=== PATIENT | male | born 1960 ===

== ENCOUNTER 2024-08-14 11:09 | Inpatient (IN) | payer OTHER ==
[~2024-08-14] VITALS: Ht 157.5 cm; Wt 75.5 kg
[2024-08-14] MEDS ORDERED: ATOR20TA PO (11:27)
[2024-08-14] MEDS ORDERED: LISI-894 PO (11:27)
[2024-08-14 13:39] LABS: BASOPHILS % (AUTO) 0.5 % (0.0-2.0); EOSINOPHILS % (AUTO) 1.2 % (1.0-6.0); HEMATOCRIT 43.2 % (41-53); HEMOGLOBIN 14.4 g/dL (13.5-17.5); LYMPHOCYTES % (AUTO) 14.2 % (22.0-44.0); MEAN CORPUSCULAR HEMOGLOBIN 27.3 pg (26.0-34.0); MEAN CORPUSCULAR HGB CONC 33.4 G/dL (31.0-37.0); MEAN CORPUSCULAR VOLUME 82 fL (80-100); MONOCYTES # (AUTO) 0.5 K/uL (0.1-1.0); MONOCYTES % (AUTO) 7.3 % (2.0-9.0); NEUTROPHILS # (AUTO) 5.6 K/uL (1.8-7.7); NEUTROPHILS % (AUTO) 76.8 % (40.0-70.0); PLATELET COUNT (AUTO) 290 K/uL (150-450); RED BLOOD CELL COUNT(AUTO) 5.28 MIL/uL (4.50-5.90); RED CELL DISTRIBUTION WIDTH 14.1 % (11.5-14.5); WHITE BLOOD COUNT (AUTO) 7.3 K/uL (4.5-11.0)
[2024-08-14 14:05] LABS: ALBUMIN 3.2 g/dL (3.4-5.0); BILIRUBIN,TOTAL 0.5 mg/dL (0.1-1.0); CALCIUM, TOTAL 9.6 mg/dL (8.8-10.5); CREATININE 1.34 mg/dL (0.60-1.30); POTASSIUM 4.7 mmol/L (3.5-5.1); TOTAL PROTEIN, SERUM 8.2 g/dL (6.4-8.2)
[2024-08-14] MEDS: SODIUM CHLORIDE 0.9% 1,000 ML IV ONE (14:27)
[2024-08-14] MEDS: INSULIN LISPRO 100 UNITS/ML SQ ONE (14:27)
[2024-08-14 16:35] VITALS: BP 150/88; PULSE 86; RESP 18; TEMP 98.6; O2SAT 98
[2024-08-14] MEDS: HEPARIN SODIUM,PORCINE 5,000 UNITS/ML VIAL SQ SCH (16:42)
[2024-08-14] MEDS ORDERED: SODIUM CHLORIDE 3% 15 ML NEB SOLUTION NEB ONE (19:36)
[2024-08-14 19:45] VITALS: PULSE 94; RESP 20; O2SAT 96
[2024-08-14 20:25] VITALS: BP 137/77; PULSE 82; RESP 18; TEMP 97.6; O2SAT 96
[2024-08-14] MEDS ORDERED: DEXTROSE 50%-WATER 25 GM/50 ML SYRINGE IVP PRN (21:15)
[2024-08-14] MEDS: INSULIN GLARGINE,HUM.REC.ANLOG 100 UNITS/ML SQ SCH (21:28)
[2024-08-14] MEDS: INSULIN LISPRO 100 UNITS/ML SQ PRN (21:29)
[2024-08-15] MEDS ORDERED: SODIUM CHLORIDE 3% 15 ML NEB SOLUTION NEB ONE (04:00)
[2024-08-15 04:04] VITALS: PULSE 78; RESP 20; O2SAT 96
[2024-08-15 06:20] VITALS: BP 121/77; PULSE 66; RESP 18; TEMP 97.8; O2SAT 99
[2024-08-15] MEDS: FAMOTIDINE 20 MG TABLET PO SCH (09:11)
[2024-08-15 09:36] LABS: GLUCOMETER DEV NAME(LOC) 6N.2B; GLUCOSE,POINT OF CARE 206 MG/DL (70-110)
[2024-08-15] MEDS: SODIUM CHLORIDE 0.9% 1,000 ML IV ONE (10:42)
[2024-08-15 13:10] LABS: MTB-RIFAMPIN RESISTANCE NOT DETECTED (Not detectd)
[2024-08-15 14:44] LABS: MTB-RIFAMPIN RESISTANCE NOT DETECTED (Not detectd)
[2024-08-15 14:49] LABS: MTB PCR w/Rif. Resistance-SPUT DETECTED (Not Detectd)
[2024-08-15 14:51] LABS: MTB PCR w/Rif. Resistance-SPUT DETECTED (Not Detectd)
[2024-08-15 15:47] LABS: GLUCOMETER DEV NAME(LOC) 6N.1B; GLUCOSE,POINT OF CARE 133 MG/DL (70-110)
[2024-08-15 15:47] LABS: GLUCOMETER DEV NAME(LOC) 6N.1B; GLUCOSE,POINT OF CARE 442 MG/DL (70-110)
[2024-08-15 16:14] LABS: GLUCOMETER DEV NAME(LOC) 6N.1B; GLUCOSE,POINT OF CARE 133 MG/DL (70-110)
[2024-08-15 16:14] LABS: GLUCOMETER DEV NAME(LOC) 6N.1B; GLUCOSE,POINT OF CARE 442 MG/DL (70-110)
[2024-08-15] MEDS: ETHAMBUTOL HCL 400 MG TABLET PO SCH (16:33)
[2024-08-15] MEDS: PYRAZINAMIDE 500 MG TABLET PO SCH (16:33)
[2024-08-15] MEDS: RIFAMPIN 300 MG CAPSULE PO SCH (16:43)
[2024-08-15] MEDS: ISONIAZID 300 MG TABLET PO SCH (16:43)
[2024-08-15] MEDS: MetFORMIN HCL 500 MG TABLET PO SCH (18:07)
[2024-08-15 19:06] LABS: GLUCOMETER DEV NAME(LOC) 6N.1B; GLUCOSE,POINT OF CARE 205 MG/DL (70-110)
[2024-08-15 19:06] LABS: GLUCOMETER DEV NAME(LOC) 6N.2B; GLUCOSE,POINT OF CARE 252 MG/DL (70-110)
[2024-08-15 20:20] VITALS: BP 121/64; PULSE 67; RESP 18; TEMP 98.4; O2SAT 98
[2024-08-16 07:34] LABS: ANION GAP 10 mmol/L (8-16); CALCIUM, TOTAL 8.5 mg/dL (8.8-10.5); CARBON DIOXIDE 27 mmol/L (22-29); CHLORIDE 101 mmol/L (98-107); CREATININE 0.73 mg/dL (0.60-1.30); GLOMERULAR FILTR. RATE CALC > 60 mL/min (>60); GLUCOSE,RANDOM 122 mg/dL (70-110); SODIUM SERUM 138 mmol/L (136-145); UREA NITROGEN, BLOOD 18 mg/dL (7-18)
[2024-08-16 07:38] VITALS: BP 118/75; PULSE 74; RESP 18; TEMP 98.6; O2SAT 99
[2024-08-16 09:36] LABS: GLUCOMETER DEV NAME(LOC) 6N.1B; GLUCOSE,POINT OF CARE 116 MG/DL (70-110)
[2024-08-16 09:40] LABS: GLUCOMETER DEV NAME(LOC) 6N.2B; GLUCOSE,POINT OF CARE 231 MG/DL (70-110)
[2024-08-16 20:16] VITALS: BP 120/73; PULSE 88; RESP 18; TEMP 98.9; O2SAT 96
[2024-08-16 20:31] LABS: GLUCOMETER DEV NAME(LOC) 6N.1B; GLUCOSE,POINT OF CARE 249 MG/DL (70-110)
[2024-08-16 20:31] LABS: GLUCOMETER DEV NAME(LOC) 6N.1B; GLUCOSE,POINT OF CARE 275 MG/DL (70-110)
[2024-08-16 21:31] LABS: GLUCOMETER DEV NAME(LOC) 6N.2B; GLUCOSE,POINT OF CARE 132 MG/DL (70-110)
[2024-08-17 04:43] VITALS: BP 128/78; PULSE 70; RESP 18; TEMP 98.1; O2SAT 96
[2024-08-17 07:38] VITALS: BP 120/72; PULSE 67; RESP 18; TEMP 98.7; O2SAT 99
[2024-08-17 11:56] LABS: GLUCOMETER DEV NAME(LOC) 6N.2B; GLUCOSE,POINT OF CARE 171 MG/DL (70-110)
[2024-08-17 12:30] LABS: GLUCOMETER DEV NAME(LOC) 6S.2; GLUCOSE,POINT OF CARE 175 MG/DL (70-110)
[2024-08-17 19:01] LABS: GLUCOMETER DEV NAME(LOC) 6S.2; GLUCOSE,POINT OF CARE 159 MG/DL (70-110)
[2024-08-17 19:54] VITALS: BP 132/76; PULSE 66; RESP 18; TEMP 98.6; O2SAT 97
[2024-08-18 05:06] VITALS: BP 118/68; PULSE 75; RESP 18; TEMP 98.6; O2SAT 98
[2024-08-18 06:20] LABS: GLUCOMETER DEV NAME(LOC) 6N.1B; GLUCOSE,POINT OF CARE 144 MG/DL (70-110)
[2024-08-18 08:03] VITALS: BP 115/78; PULSE 79; RESP 18; TEMP 98.8; O2SAT 97
[2024-08-18 10:06] LABS: QUANTIFERON+,Mitogen Value >10.00 IU/mL; QUANTIFERON+,TB1 Antigen Value 5.72 IU/mL; QUANTIFERON+,TB2 Antigen Value 6.04 IU/mL; QUANTIFERON, TB GOLD PLUS Positive (Negative)
[2024-08-18 11:30] LABS: GLUCOMETER DEV NAME(LOC) 6S.2; GLUCOSE,POINT OF CARE 102 MG/DL (70-110)
[2024-08-18 13:06] LABS: GLUCOMETER DEV NAME(LOC) 6N.2B; GLUCOSE,POINT OF CARE 214 MG/DL (70-110)
[2024-08-18 20:55] VITALS: BP 114/70; PULSE 74; RESP 18; TEMP 98.7; O2SAT 96
[2024-08-18 21:40] LABS: GLUCOMETER DEV NAME(LOC) 6N.2B; GLUCOSE,POINT OF CARE 140 MG/DL (70-110)
[2024-08-18 21:46] LABS: GLUCOMETER DEV NAME(LOC) 6S.2; GLUCOSE,POINT OF CARE 188 MG/DL (70-110)
[2024-08-19] MEDS: ACETAMINOPHEN 325 MG TABLET PO PRN (02:29)
[2024-08-19 05:18] VITALS: BP 119/74; PULSE 72; RESP 18; TEMP 98; O2SAT 97
[2024-08-19 08:57] VITALS: BP 128/70; PULSE 73; RESP 20; TEMP 98.3; O2SAT 98
[2024-08-19 12:45] LABS: GLUCOMETER DEV NAME(LOC) 6S.2; GLUCOSE,POINT OF CARE 102 MG/DL (70-110)
[2024-08-19 12:45] LABS: GLUCOMETER DEV NAME(LOC) 6N.1B; GLUCOSE,POINT OF CARE 116 MG/DL (70-110)
[2024-08-19 17:56] LABS: GLUCOMETER DEV NAME(LOC) 6S.2; GLUCOSE,POINT OF CARE 125 MG/DL (70-110)
[2024-08-19 20:08] VITALS: BP 128/80; PULSE 67; RESP 20; TEMP 98.7; O2SAT 95
[2024-08-19 21:45] LABS: GLUCOSE,POINT OF CARE 128 MG/DL (70-110)
[2024-08-19 21:46] LABS: GLUCOMETER DEV NAME(LOC) 6N.2B
[2024-08-20 05:24] VITALS: BP 128/82; PULSE 82; RESP 18; TEMP 98.4; O2SAT 98
[2024-08-20 05:36] LABS: GLUCOMETER DEV NAME(LOC) 6N.2B; GLUCOSE,POINT OF CARE 102 MG/DL (70-110)
[2024-08-20 08:00] VITALS: BP 117/78; PULSE 82; RESP 18; TEMP 98.3; O2SAT 97
[2024-08-20 10:09] LABS: BASOPHILS % (AUTO) 0.7 % (0.0-2.0); EOSINOPHILS % (AUTO) 2.2 % (1.0-6.0); HEMATOCRIT 42.9 % (41-53); HEMOGLOBIN 14.5 g/dL (13.5-17.5); LYMPHOCYTES # (AUTO) 1.2 K/uL (1.0-4.8); LYMPHOCYTES % (AUTO) 17.9 % (22.0-44.0); MEAN CORPUSCULAR HEMOGLOBIN 27.2 pg (26.0-34.0); MEAN CORPUSCULAR HGB CONC 33.7 G/dL (31.0-37.0); MEAN CORPUSCULAR VOLUME 81 fL (80-100); MONOCYTES # (AUTO) 0.6 K/uL (0.1-1.0); NEUTROPHILS # (AUTO) 4.7 K/uL (1.8-7.7); NEUTROPHILS % (AUTO) 70.2 % (40.0-70.0); PLATELET COUNT (AUTO) 269 K/uL (150-450); RED BLOOD CELL COUNT(AUTO) 5.32 MIL/uL (4.50-5.90); WHITE BLOOD COUNT (AUTO) 6.7 K/uL (4.5-11.0)
[2024-08-20 10:37] LABS: ALANINE AMINOTRANSFERASE 53 U/L (12-78); ALBUMIN 2.9 g/dL (3.4-5.0); ALKALINE PHOSPHATASE 138 U/L (46-116); ANION GAP 9 mmol/L (8-16); ASPARTATE AMINOTRANSFERASE 60 U/L (15-37); BILIRUBIN,TOTAL 0.8 mg/dL (0.1-1.0); CALCIUM, TOTAL 9.6 mg/dL (8.8-10.5); CARBON DIOXIDE 27 mmol/L (22-29); CHLORIDE 98 mmol/L (98-107); CREATININE 0.92 mg/dL (0.60-1.30); GLOMERULAR FILTR. RATE CALC > 60 mL/min (>60); GLUCOSE,RANDOM 149 mg/dL (70-110); POTASSIUM 4.1 mmol/L (3.5-5.1); SODIUM SERUM 134 mmol/L (136-145); TOTAL PROTEIN, SERUM 7.8 g/dL (6.4-8.2); UREA NITROGEN, BLOOD 19 mg/dL (7-18)
[2024-08-20 11:56] LABS: HIV 1-2 SCREEN 4TH GEN W/RFLX Non Reactive (Non Reactive)
[2024-08-20 19:55] VITALS: BP 121/85; PULSE 82; RESP 18; TEMP 98.2; O2SAT 95
[2024-08-20] MEDS: MAGNESIUM HYDROXIDE SUSPENSION 30 ML UDCUP PO PRN (20:31)
[2024-08-20 21:55] LABS: GLUCOMETER DEV NAME(LOC) 6N.2B; GLUCOSE,POINT OF CARE 116 MG/DL (70-110)
[2024-08-20 21:56] LABS: GLUCOMETER DEV NAME(LOC) 6N.2B; GLUCOSE,POINT OF CARE 142 MG/DL (70-110)
[2024-08-20 21:56] LABS: GLUCOMETER DEV NAME(LOC) 6N.2B; GLUCOSE,POINT OF CARE 125 MG/DL (70-110)
[2024-08-21 04:35] VITALS: BP 100/62; PULSE 91; RESP 18; TEMP 98.1; O2SAT 98
[2024-08-21 07:11] LABS: GLUCOMETER DEV NAME(LOC) 6N.1B; GLUCOSE,POINT OF CARE 115 MG/DL (70-110)
[2024-08-21 08:17] VITALS: BP 119/76; PULSE 81; RESP 18; TEMP 99.9; O2SAT 99
[2024-08-21] MEDS: ONDANSETRON 4 MG TABLET PO PRN (13:08)
[2024-08-21 17:31] LABS: GLUCOMETER DEV NAME(LOC) 6N.2B; GLUCOSE,POINT OF CARE 138 MG/DL (70-110)
[2024-08-21 17:35] LABS: GLUCOMETER DEV NAME(LOC) 6N.1B; GLUCOSE,POINT OF CARE 109 MG/DL (70-110)
[2024-08-21 20:38] VITALS: BP 120/71; PULSE 73; RESP 19; TEMP 98.3; O2SAT 97
[2024-08-21 21:36] LABS: GLUCOMETER DEV NAME(LOC) 6S.2; GLUCOSE,POINT OF CARE 116 MG/DL (70-110)
[2024-08-22 06:05] VITALS: BP 120/70; PULSE 76; RESP 16; TEMP 98.2; O2SAT 97
[2024-08-22 08:40] VITALS: BP 118/77; PULSE 77; RESP 19; TEMP 98.2; O2SAT 97
[2024-08-22 11:15] LABS: GLUCOMETER DEV NAME(LOC) 6N.1B; GLUCOSE,POINT OF CARE 90 MG/DL (70-110)
[2024-08-22 20:52] VITALS: BP 113/78; PULSE 73; RESP 18; TEMP 98.3; O2SAT 98
[2024-08-22 21:51] LABS: GLUCOMETER DEV NAME(LOC) 6N.2B; GLUCOSE,POINT OF CARE 74 MG/DL (70-110)
[2024-08-23 06:16] LABS: GLUCOMETER DEV NAME(LOC) 6N.2B; GLUCOSE,POINT OF CARE 95 MG/DL (70-110)
[2024-08-23 07:57] VITALS: BP 122/72; PULSE 72; RESP 19; TEMP 98; O2SAT 97
[2024-08-23 08:05] LABS: GLUCOMETER DEV NAME(LOC) 6N.1B; GLUCOSE,POINT OF CARE 108 MG/DL (70-110)
[2024-08-23 12:16] LABS: GLUCOMETER DEV NAME(LOC) 6S.2; GLUCOSE,POINT OF CARE 124 MG/DL (70-110)
[2024-08-23 19:11] LABS: GLUCOMETER DEV NAME(LOC) 6N.1B; GLUCOSE,POINT OF CARE 110 MG/DL (70-110)
[2024-08-23 20:17] VITALS: BP 129/74; PULSE 72; RESP 20; TEMP 98.3; O2SAT 96
[2024-08-24 02:26] LABS: GLUCOMETER DEV NAME(LOC) 6N.2B; GLUCOSE,POINT OF CARE 133 MG/DL (70-110)
[2024-08-24 04:55] VITALS: BP 127/88; PULSE 76; RESP 20; TEMP 97.5; O2SAT 97
[2024-08-24 08:49] VITALS: BP 126/79; PULSE 78; RESP 20; TEMP 98.3; O2SAT 97
[2024-08-24 14:31] LABS: GLUCOMETER DEV NAME(LOC) 6N.1B; GLUCOSE,POINT OF CARE 103 MG/DL (70-110)
[2024-08-24 14:31] LABS: GLUCOMETER DEV NAME(LOC) 6N.1B; GLUCOSE,POINT OF CARE 83 MG/DL (70-110)
[2024-08-24 15:55] LABS: BASOPHILS % (AUTO) 0.8 % (0.0-2.0); EOSINOPHILS % (AUTO) 1.8 % (1.0-6.0); HEMATOCRIT 43.3 % (41-53); HEMOGLOBIN 14.5 g/dL (13.5-17.5); LYMPHOCYTES # (AUTO) 1.1 K/uL (1.0-4.8); MEAN CORPUSCULAR HEMOGLOBIN 27.3 pg (26.0-34.0); MEAN CORPUSCULAR HGB CONC 33.5 G/dL (31.0-37.0); MEAN CORPUSCULAR VOLUME 81 fL (80-100); MONOCYTES # (AUTO) 0.5 K/uL (0.1-1.0); MONOCYTES % (AUTO) 7.9 % (2.0-9.0); NEUTROPHILS # (AUTO) 4.2 K/uL (1.8-7.7); NEUTROPHILS % (AUTO) 71.5 % (40.0-70.0); PLATELET COUNT (AUTO) 284 K/uL (150-450); RED BLOOD CELL COUNT(AUTO) 5.31 MIL/uL (4.50-5.90); RED CELL DISTRIBUTION WIDTH 14.2 % (11.5-14.5); WHITE BLOOD COUNT (AUTO) 5.9 K/uL (4.5-11.0)
[2024-08-24 16:02] LABS: ANION GAP 10 mmol/L (8-16); CALCIUM, TOTAL 9.5 mg/dL (8.8-10.5); CARBON DIOXIDE 26 mmol/L (22-29); CHLORIDE 97 mmol/L (98-107); CREATININE 1.05 mg/dL (0.60-1.30); GLOMERULAR FILTR. RATE CALC > 60 mL/min (>60); GLUCOSE,RANDOM 146 mg/dL (70-110); POTASSIUM 4.5 mmol/L (3.5-5.1); SODIUM SERUM 133 mmol/L (136-145); UREA NITROGEN, BLOOD 15 mg/dL (7-18)
[2024-08-24 16:07] LABS: ALANINE AMINOTRANSFERASE 100 U/L (12-78); ALBUMIN 2.9 g/dL (3.4-5.0); ALKALINE PHOSPHATASE 182 U/L (46-116); ASPARTATE AMINOTRANSFERASE 91 U/L (15-37); BILIRUBIN,TOTAL 1.2 mg/dL (0.1-1.0); TOTAL PROTEIN, SERUM 7.9 g/dL (6.4-8.2)
[2024-08-24 20:15] LABS: GLUCOMETER DEV NAME(LOC) 6N.1B; GLUCOSE,POINT OF CARE 153 MG/DL (70-110)
[2024-08-24 20:44] VITALS: BP 120/75; PULSE 78; RESP 18; TEMP 98; O2SAT 97
[2024-08-25 04:43] VITALS: BP 149/93; PULSE 81; RESP 18; TEMP 98; O2SAT 98
[2024-08-25 07:16] LABS: GLUCOMETER DEV NAME(LOC) 6N.2B; GLUCOSE,POINT OF CARE 146 MG/DL (70-110)
[2024-08-25 07:16] LABS: GLUCOMETER DEV NAME(LOC) 6S.2; GLUCOSE,POINT OF CARE 91 MG/DL (70-110)
[2024-08-25 07:50] VITALS: BP 132/79; PULSE 74; RESP 18; TEMP 97.9; O2SAT 96
[2024-08-25] MEDS: PYRIDOXINE HCL 50 MG TABLET PO SCH (08:35)
[2024-08-25 12:22] LABS: ALANINE AMINOTRANSFERASE 108 U/L (12-78); ALBUMIN 3.2 g/dL (3.4-5.0); ALKALINE PHOSPHATASE 196 U/L (46-116); ANION GAP 9 mmol/L (8-16); ASPARTATE AMINOTRANSFERASE 83 U/L (15-37); CALCIUM, TOTAL 9.7 mg/dL (8.8-10.5); CARBON DIOXIDE 28 mmol/L (22-29); CHLORIDE 97 mmol/L (98-107); CREATININE 1.02 mg/dL (0.60-1.30); GLOMERULAR FILTR. RATE CALC > 60 mL/min (>60); GLUCOSE,RANDOM 117 mg/dL (70-110); POTASSIUM 4.2 mmol/L (3.5-5.1); SODIUM SERUM 134 mmol/L (136-145); TOTAL PROTEIN, SERUM 8.4 g/dL (6.4-8.2); UREA NITROGEN, BLOOD 12 mg/dL (7-18)
[2024-08-25] MEDS: DOCUSATE SODIUM 100 MG CAPSULE PO PRN (13:49)
[2024-08-25 19:11] LABS: GLUCOMETER DEV NAME(LOC) 6S.2; GLUCOSE,POINT OF CARE 112 MG/DL (70-110)
[2024-08-25 20:21] VITALS: BP 136/77; PULSE 73; RESP 18; TEMP 98.1; O2SAT 97
[2024-08-25 21:55] LABS: GLUCOMETER DEV NAME(LOC) 6N.2B; GLUCOSE,POINT OF CARE 193 MG/DL (70-110)
[2024-08-26 05:12] VITALS: BP 142/78; PULSE 73; RESP 18; TEMP 97.9; O2SAT 99
[2024-08-26 09:22] VITALS: BP 111/76; PULSE 72; RESP 18; O2SAT 96
[2024-08-26 14:51] LABS: GLUCOMETER DEV NAME(LOC) 6N.1B; GLUCOSE,POINT OF CARE 127 MG/DL (70-110)
[2024-08-26 14:51] LABS: GLUCOMETER DEV NAME(LOC) 6N.1B; GLUCOSE,POINT OF CARE 90 MG/DL (70-110)
[2024-08-26 15:00] LABS: GLUCOMETER DEV NAME(LOC) 6S.2; GLUCOSE,POINT OF CARE 169 MG/DL (70-110)
[2024-08-26 20:30] VITALS: BP 139/84; PULSE 80; RESP 18; TEMP 97.9; O2SAT 97
[2024-08-26 22:41] LABS: GLUCOMETER DEV NAME(LOC) 6N.2B; GLUCOSE,POINT OF CARE 115 MG/DL (70-110)
[2024-08-26 22:41] LABS: GLUCOMETER DEV NAME(LOC) 6N.1B; GLUCOSE,POINT OF CARE 141 MG/DL (70-110)
[2024-08-27 04:26] VITALS: BP 133/76; PULSE 74; RESP 18; TEMP 98.3; O2SAT 95
[2024-08-27 06:56] LABS: GLUCOMETER DEV NAME(LOC) 6S.2; GLUCOSE,POINT OF CARE 115 MG/DL (70-110)
[2024-08-27 07:16] VITALS: BP 131/86; PULSE 82; RESP 18; TEMP 98.3; O2SAT 100
[2024-08-27] MEDS: LACTULOSE 20 GM/30 ML SOLUTION UDCUP PO ONE (13:41)
[2024-08-27 20:19] VITALS: BP 129/74; PULSE 77; RESP 16; TEMP 98.1; O2SAT 97
[2024-08-27 20:37] LABS: GLUCOMETER DEV NAME(LOC) 6S.2; GLUCOSE,POINT OF CARE 104 MG/DL (70-110)
[2024-08-27 20:37] LABS: GLUCOMETER DEV NAME(LOC) 6N.1B; GLUCOSE,POINT OF CARE 71 MG/DL (70-110)
[2024-08-28] MEDS: LACTULOSE 20 GM/30 ML SOLUTION UDCUP PO PRN (01:39)
[2024-08-28 05:38] VITALS: BP 132/77; PULSE 75; RESP 18; TEMP 97.7; O2SAT 97
[2024-08-28 07:15] LABS: BASOPHILS % (AUTO) 0.6 % (0.0-2.0); EOSINOPHILS % (AUTO) 2.7 % (1.0-6.0); HEMATOCRIT 44.4 % (41-53); HEMOGLOBIN 15.1 g/dL (13.5-17.5); LYMPHOCYTES # (AUTO) 1.5 K/uL (1.0-4.8); LYMPHOCYTES % (AUTO) 17.6 % (22.0-44.0); MEAN CORPUSCULAR HEMOGLOBIN 27.6 pg (26.0-34.0); MEAN CORPUSCULAR HGB CONC 34.1 G/dL (31.0-37.0); MEAN CORPUSCULAR VOLUME 81 fL (80-100); MONOCYTES # (AUTO) 0.6 K/uL (0.1-1.0); MONOCYTES % (AUTO) 7.5 % (2.0-9.0); NEUTROPHILS # (AUTO) 6.1 K/uL (1.8-7.7); NEUTROPHILS % (AUTO) 71.6 % (40.0-70.0); PLATELET COUNT (AUTO) 299 K/uL (150-450); RED BLOOD CELL COUNT(AUTO) 5.47 MIL/uL (4.50-5.90); RED CELL DISTRIBUTION WIDTH 13.9 % (11.5-14.5); WHITE BLOOD COUNT (AUTO) 8.5 K/uL (4.5-11.0)
[2024-08-28 07:36] LABS: ALANINE AMINOTRANSFERASE 103 U/L (12-78); ALBUMIN 3.2 g/dL (3.4-5.0); ALKALINE PHOSPHATASE 193 U/L (46-116); ANION GAP 9 mmol/L (8-16); ASPARTATE AMINOTRANSFERASE 57 U/L (15-37); BILIRUBIN,TOTAL 0.4 mg/dL (0.1-1.0); CALCIUM, TOTAL 9.7 mg/dL (8.8-10.5); CARBON DIOXIDE 28 mmol/L (22-29); CHLORIDE 97 mmol/L (98-107); CREATININE 1.01 mg/dL (0.60-1.30); GLOMERULAR FILTR. RATE CALC > 60 mL/min (>60); GLUCOSE,RANDOM 108 mg/dL (70-110); SODIUM SERUM 134 mmol/L (136-145); TOTAL PROTEIN, SERUM 8.3 g/dL (6.4-8.2); UREA NITROGEN, BLOOD 10 mg/dL (7-18)
[2024-08-28 08:06] VITALS: BP 129/78; PULSE 79; RESP 18; TEMP 98; O2SAT 98
[2024-08-28] MEDS: BISACODYL 10 MG RECTAL RECTAL SUPPOSITORY PR PRN (12:09)
[2024-08-28 20:06] VITALS: BP 136/85; PULSE 84; RESP 19; TEMP 98.2; O2SAT 98
[2024-08-29 05:51] VITALS: BP 126/81; PULSE 74; RESP 18; TEMP 98.3; O2SAT 98
[2024-08-29 06:11] LABS: GLUCOMETER DEV NAME(LOC) 6N.2B; GLUCOSE,POINT OF CARE 154 MG/DL (70-110)
[2024-08-29 06:11] LABS: GLUCOMETER DEV NAME(LOC) 6N.2B; GLUCOSE,POINT OF CARE 154 MG/DL (70-110)
[2024-08-29 06:11] LABS: GLUCOMETER DEV NAME(LOC) 6N.2B; GLUCOSE,POINT OF CARE 168 MG/DL (70-110)
[2024-08-29 06:44] LABS: BASOPHILS % (AUTO) 0.9 % (0.0-2.0); EOSINOPHILS % (AUTO) 3.6 % (1.0-6.0); HEMATOCRIT 43.3 % (41-53); LYMPHOCYTES # (AUTO) 1.1 K/uL (1.0-4.8); LYMPHOCYTES % (AUTO) 13.4 % (22.0-44.0); MEAN CORPUSCULAR HEMOGLOBIN 28.2 pg (26.0-34.0); MEAN CORPUSCULAR HGB CONC 34.6 G/dL (31.0-37.0); MEAN CORPUSCULAR VOLUME 81 fL (80-100); MONOCYTES # (AUTO) 0.9 K/uL (0.1-1.0); MONOCYTES % (AUTO) 10.3 % (2.0-9.0); NEUTROPHILS # (AUTO) 6.1 K/uL (1.8-7.7); NEUTROPHILS % (AUTO) 71.8 % (40.0-70.0); PLATELET COUNT (AUTO) 274 K/uL (150-450); RED BLOOD CELL COUNT(AUTO) 5.32 MIL/uL (4.50-5.90); RED CELL DISTRIBUTION WIDTH 14.2 % (11.5-14.5); WHITE BLOOD COUNT (AUTO) 8.5 K/uL (4.5-11.0)
[2024-08-29 07:05] LABS: ALANINE AMINOTRANSFERASE 88 U/L (12-78); ALKALINE PHOSPHATASE 174 U/L (46-116); ANION GAP 8 mmol/L (8-16); ASPARTATE AMINOTRANSFERASE 48 U/L (15-37); BILIRUBIN,TOTAL 0.5 mg/dL (0.1-1.0); CALCIUM, TOTAL 9.3 mg/dL (8.8-10.5); CARBON DIOXIDE 27 mmol/L (22-29); CHLORIDE 99 mmol/L (98-107); CREATININE 0.85 mg/dL (0.60-1.30); GLOMERULAR FILTR. RATE CALC > 60 mL/min (>60); GLUCOSE,RANDOM 104 mg/dL (70-110); POTASSIUM 4.6 mmol/L (3.5-5.1); SODIUM SERUM 134 mmol/L (136-145); TOTAL PROTEIN, SERUM 7.9 g/dL (6.4-8.2); UREA NITROGEN, BLOOD 11 mg/dL (7-18)
[2024-08-29 08:00] VITALS: BP 125/87; PULSE 78; RESP 18; TEMP 98.7; O2SAT 99
[2024-08-29 10:51] LABS: GLUCOMETER DEV NAME(LOC) 6N.1B; GLUCOSE,POINT OF CARE 111 MG/DL (70-110)
[2024-08-29 10:51] LABS: GLUCOMETER DEV NAME(LOC) 6N.1B; GLUCOSE,POINT OF CARE 135 MG/DL (70-110)
[2024-08-29 18:26] LABS: GLUCOMETER DEV NAME(LOC) 6N.2B; GLUCOSE,POINT OF CARE 99 MG/DL (70-110)
[2024-08-29 18:31] LABS: GLUCOMETER DEV NAME(LOC) 6S.2; GLUCOSE,POINT OF CARE 187 MG/DL (70-110)
[2024-08-29 18:31] LABS: GLUCOMETER DEV NAME(LOC) 6S.2; GLUCOSE,POINT OF CARE 150 MG/DL (70-110)
[2024-08-29 18:31] LABS: GLUCOMETER DEV NAME(LOC) 6S.2; GLUCOSE,POINT OF CARE 115 MG/DL (70-110)
[2024-08-29 19:49] VITALS: BP 125/77; PULSE 78; RESP 18; TEMP 98.9; O2SAT 97
[2024-08-29 23:50] LABS: GLUCOMETER DEV NAME(LOC) 6N.2B; GLUCOSE,POINT OF CARE 149 MG/DL (70-110)
[2024-08-30 05:43] VITALS: BP 126/73; PULSE 72; RESP 18; TEMP 98.2; O2SAT 98
[2024-08-30 06:14] LABS: BASOPHILS % (AUTO) 0.8 % (0.0-2.0); HEMATOCRIT 42.6 % (41-53); LYMPHOCYTES # (AUTO) 1.2 K/uL (1.0-4.8); LYMPHOCYTES % (AUTO) 12.9 % (22.0-44.0); MEAN CORPUSCULAR HEMOGLOBIN 28.4 pg (26.0-34.0); MEAN CORPUSCULAR HGB CONC 35.1 G/dL (31.0-37.0); MEAN CORPUSCULAR VOLUME 81 fL (80-100); MONOCYTES # (AUTO) 0.9 K/uL (0.1-1.0); MONOCYTES % (AUTO) 10.2 % (2.0-9.0); NEUTROPHILS # (AUTO) 6.7 K/uL (1.8-7.7); NEUTROPHILS % (AUTO) 73.1 % (40.0-70.0); PLATELET COUNT (AUTO) 277 K/uL (150-450); RED BLOOD CELL COUNT(AUTO) 5.26 MIL/uL (4.50-5.90); RED CELL DISTRIBUTION WIDTH 14.4 % (11.5-14.5); WHITE BLOOD COUNT (AUTO) 9.2 K/uL (4.5-11.0)
[2024-08-30 06:34] LABS: ALANINE AMINOTRANSFERASE 88 U/L (12-78); ALKALINE PHOSPHATASE 191 U/L (46-116); ANION GAP 6 mmol/L (8-16); ASPARTATE AMINOTRANSFERASE 46 U/L (15-37); BILIRUBIN,TOTAL 0.7 mg/dL (0.1-1.0); CALCIUM, TOTAL 9.5 mg/dL (8.8-10.5); CARBON DIOXIDE 29 mmol/L (22-29); CHLORIDE 97 mmol/L (98-107); CREATININE 1.07 mg/dL (0.60-1.30); GLOMERULAR FILTR. RATE CALC > 60 mL/min (>60); GLUCOSE,RANDOM 85 mg/dL (70-110); POTASSIUM 4.2 mmol/L (3.5-5.1); SODIUM SERUM 132 mmol/L (136-145); TOTAL PROTEIN, SERUM 8.2 g/dL (6.4-8.2); UREA NITROGEN, BLOOD 14 mg/dL (7-18)
[2024-08-30 07:46] LABS: GLUCOMETER DEV NAME(LOC) 6N.2B; GLUCOSE,POINT OF CARE 90 MG/DL (70-110)
[2024-08-30 08:22] VITALS: BP 116/75; PULSE 79; RESP 20; TEMP 98.6; O2SAT 96
[2024-08-30] MEDS ORDERED: SODIUM CHLORIDE 3% 15 ML NEB SOLUTION NEB ONE ×2 (12:01→20:27)
[2024-08-30 19:38] VITALS: BP 148/56; PULSE 82; RESP 18; TEMP 98.5; O2SAT 98
[2024-08-30 20:40] LABS: GLUCOMETER DEV NAME(LOC) 6N.2B; GLUCOSE,POINT OF CARE 102 MG/DL (70-110)
[2024-08-31 05:45] LABS: GLUCOMETER DEV NAME(LOC) 6N.1B; GLUCOSE,POINT OF CARE 159 MG/DL (70-110)
[2024-08-31 05:46] VITALS: BP 121/81; PULSE 90; RESP 18; TEMP 98.8; O2SAT 96
[2024-08-31 07:21] LABS: ALANINE AMINOTRANSFERASE 79 U/L (12-78); ALKALINE PHOSPHATASE 183 U/L (46-116); ANION GAP 7 mmol/L (8-16); ASPARTATE AMINOTRANSFERASE 45 U/L (15-37); BASOPHILS % (AUTO) 0.6 % (0.0-2.0); BILIRUBIN,TOTAL 0.8 mg/dL (0.1-1.0); CALCIUM, TOTAL 9.5 mg/dL (8.8-10.5); CARBON DIOXIDE 29 mmol/L (22-29); CHLORIDE 96 mmol/L (98-107); CREATININE 0.99 mg/dL (0.60-1.30); EOSINOPHILS % (AUTO) 3.1 % (1.0-6.0); GLOMERULAR FILTR. RATE CALC > 60 mL/min (>60); GLUCOSE,RANDOM 90 mg/dL (70-110); HEMATOCRIT 42.1 % (41-53); HEMOGLOBIN 14.6 g/dL (13.5-17.5); LYMPHOCYTES # (AUTO) 1.2 K/uL (1.0-4.8); LYMPHOCYTES % (AUTO) 12.3 % (22.0-44.0); MEAN CORPUSCULAR HEMOGLOBIN 28.2 pg (26.0-34.0); MEAN CORPUSCULAR HGB CONC 34.6 G/dL (31.0-37.0); MEAN CORPUSCULAR VOLUME 82 fL (80-100); MONOCYTES # (AUTO) 1.1 K/uL (0.1-1.0); NEUTROPHILS # (AUTO) 6.8 K/uL (1.8-7.7); PLATELET COUNT (AUTO) 254 K/uL (150-450); POTASSIUM 3.9 mmol/L (3.5-5.1); RED BLOOD CELL COUNT(AUTO) 5.17 MIL/uL (4.50-5.90); RED CELL DISTRIBUTION WIDTH 14.3 % (11.5-14.5); SODIUM SERUM 132 mmol/L (136-145); UREA NITROGEN, BLOOD 11 mg/dL (7-18); WHITE BLOOD COUNT (AUTO) 9.4 K/uL (4.5-11.0)
[2024-08-31 09:03] VITALS: BP 127/76; PULSE 87; RESP 19; TEMP 98.7; O2SAT 98
[2024-08-31 10:21] LABS: GLUCOMETER DEV NAME(LOC) 6S.2; GLUCOSE,POINT OF CARE 89 MG/DL (70-110)
[2024-08-31] MEDS: SENNOSIDES 8.8 MG/5 ML SYRUP UDCUP PO ONE (16:25)
[2024-08-31 20:16] VITALS: BP 133/79; PULSE 75; RESP 18; TEMP 98.3; O2SAT 97
[2024-09-01 05:37] VITALS: BP 129/83; PULSE 77; RESP 18; TEMP 98.3; O2SAT 97
[2024-09-01 06:00] LABS: GLUCOMETER DEV NAME(LOC) 6N.2B; GLUCOSE,POINT OF CARE 98 MG/DL (70-110)
[2024-09-01 06:00] LABS: GLUCOMETER DEV NAME(LOC) 6S.2; GLUCOSE,POINT OF CARE 164 MG/DL (70-110)
[2024-09-01 06:01] LABS: GLUCOMETER DEV NAME(LOC) 6N.2B; GLUCOSE,POINT OF CARE 216 MG/DL (70-110)
[2024-09-01 06:31] LABS: BASOPHILS % (AUTO) 0.9 % (0.0-2.0); EOSINOPHILS % (AUTO) 3.4 % (1.0-6.0); HEMATOCRIT 41.5 % (41-53); HEMOGLOBIN 14.3 g/dL (13.5-17.5); LYMPHOCYTES # (AUTO) 1.2 K/uL (1.0-4.8); LYMPHOCYTES % (AUTO) 14.9 % (22.0-44.0); MEAN CORPUSCULAR HEMOGLOBIN 27.7 pg (26.0-34.0); MEAN CORPUSCULAR HGB CONC 34.4 G/dL (31.0-37.0); MEAN CORPUSCULAR VOLUME 80 fL (80-100); MONOCYTES % (AUTO) 12.7 % (2.0-9.0); NEUTROPHILS # (AUTO) 5.6 K/uL (1.8-7.7); NEUTROPHILS % (AUTO) 68.1 % (40.0-70.0); PLATELET COUNT (AUTO) 257 K/uL (150-450); RED BLOOD CELL COUNT(AUTO) 5.17 MIL/uL (4.50-5.90); RED CELL DISTRIBUTION WIDTH 14.3 % (11.5-14.5); WHITE BLOOD COUNT (AUTO) 8.2 K/uL (4.5-11.0)
[2024-09-01 06:57] LABS: ALANINE AMINOTRANSFERASE 70 U/L (12-78); ALBUMIN 2.9 g/dL (3.4-5.0); ALKALINE PHOSPHATASE 177 U/L (46-116); ANION GAP 11 mmol/L (8-16); ASPARTATE AMINOTRANSFERASE 38 U/L (15-37); BILIRUBIN,TOTAL 0.6 mg/dL (0.1-1.0); CALCIUM, TOTAL 9.5 mg/dL (8.8-10.5); CARBON DIOXIDE 28 mmol/L (22-29); CHLORIDE 99 mmol/L (98-107); CREATININE 0.97 mg/dL (0.60-1.30); GLOMERULAR FILTR. RATE CALC > 60 mL/min (>60); GLUCOSE,RANDOM 95 mg/dL (70-110); POTASSIUM 4.7 mmol/L (3.5-5.1); SODIUM SERUM 138 mmol/L (136-145); TOTAL PROTEIN, SERUM 7.9 g/dL (6.4-8.2); UREA NITROGEN, BLOOD 10 mg/dL (7-18)
[2024-09-01 08:03] VITALS: BP 121/75; PULSE 85; RESP 18; TEMP 97.6; O2SAT 99
[2024-09-01] MEDS: METOCLOPRAMIDE HCL 5 MG TABLET PO SCH (11:01)
[2024-09-01 12:00] LABS: GLUCOMETER DEV NAME(LOC) 6S.2; GLUCOSE,POINT OF CARE 142 MG/DL (70-110)
[2024-09-01 12:08] VITALS: BP 108/58; PULSE 63; RESP 17; TEMP 98.5; O2SAT 97
[2024-09-01 16:59] VITALS: BP 119/77; PULSE 75; RESP 17; TEMP 98.5; O2SAT 96
[2024-09-01 17:06] LABS: GLUCOMETER DEV NAME(LOC) 6S.2; GLUCOSE,POINT OF CARE 105 MG/DL (70-110)
[2024-09-01 20:05] VITALS: BP 127/81; PULSE 79; RESP 18; TEMP 98.2; O2SAT 98
[2024-09-01 20:11] LABS: GLUCOMETER DEV NAME(LOC) 6N.1B; GLUCOSE,POINT OF CARE 99 MG/DL (70-110)
[2024-09-02 04:45] VITALS: BP 138/90; PULSE 95; RESP 18; TEMP 97.7; O2SAT 98
[2024-09-02 04:45] LABS: GLUCOMETER DEV NAME(LOC) 6N.2B; GLUCOSE,POINT OF CARE 141 MG/DL (70-110)
[2024-09-02 07:45] LABS: BASOPHILS % (AUTO) 1.1 % (0.0-2.0); EOSINOPHILS % (AUTO) 4.9 % (1.0-6.0); HEMATOCRIT 41.9 % (41-53); HEMOGLOBIN 14.3 g/dL (13.5-17.5); LYMPHOCYTES # (AUTO) 1.1 K/uL (1.0-4.8); LYMPHOCYTES % (AUTO) 14.1 % (22.0-44.0); MEAN CORPUSCULAR HEMOGLOBIN 27.5 pg (26.0-34.0); MEAN CORPUSCULAR HGB CONC 34.1 G/dL (31.0-37.0); MEAN CORPUSCULAR VOLUME 81 fL (80-100); MONOCYTES % (AUTO) 13.1 % (2.0-9.0); NEUTROPHILS # (AUTO) 5.1 K/uL (1.8-7.7); NEUTROPHILS % (AUTO) 66.8 % (40.0-70.0); PLATELET COUNT (AUTO) 249 K/uL (150-450); RED BLOOD CELL COUNT(AUTO) 5.19 MIL/uL (4.50-5.90); RED CELL DISTRIBUTION WIDTH 14.6 % (11.5-14.5); WHITE BLOOD COUNT (AUTO) 7.7 K/uL (4.5-11.0)
[2024-09-02 07:49] LABS: ALANINE AMINOTRANSFERASE 66 U/L (12-78); ALBUMIN 2.9 g/dL (3.4-5.0); ALKALINE PHOSPHATASE 169 U/L (46-116); ANION GAP 10 mmol/L (8-16); ASPARTATE AMINOTRANSFERASE 36 U/L (15-37); BILIRUBIN,TOTAL 0.6 mg/dL (0.1-1.0); CALCIUM, TOTAL 9.6 mg/dL (8.8-10.5); CARBON DIOXIDE 30 mmol/L (22-29); CHLORIDE 95 mmol/L (98-107); CREATININE 0.98 mg/dL (0.60-1.30); GLOMERULAR FILTR. RATE CALC > 60 mL/min (>60); GLUCOSE,RANDOM 107 mg/dL (70-110); POTASSIUM 4.1 mmol/L (3.5-5.1); SODIUM SERUM 135 mmol/L (136-145); UREA NITROGEN, BLOOD 10 mg/dL (7-18)
[2024-09-02 09:06] VITALS: BP 110/61; PULSE 93; RESP 20; TEMP 98.4; O2SAT 99
[2024-09-02 18:16] LABS: GLUCOMETER DEV NAME(LOC) 6N.1B; GLUCOSE,POINT OF CARE 110 MG/DL (70-110)
[2024-09-02 18:25] LABS: GLUCOMETER DEV NAME(LOC) 6S.2; GLUCOSE,POINT OF CARE 128 MG/DL (70-110)
[2024-09-02 20:55] VITALS: BP 132/81; PULSE 89; RESP 19; TEMP 98; O2SAT 99
[2024-09-03 06:20] VITALS: BP 125/80; PULSE 74; RESP 18; TEMP 98.2; O2SAT 99
[2024-09-03 07:01] LABS: GLUCOMETER DEV NAME(LOC) 6N.2B; GLUCOSE,POINT OF CARE 164 MG/DL (70-110)
[2024-09-03 07:03] LABS: EOSINOPHILS % (AUTO) 3.8 % (1.0-6.0); HEMATOCRIT 41.5 % (41-53); HEMOGLOBIN 14.5 g/dL (13.5-17.5); LYMPHOCYTES # (AUTO) 1.1 K/uL (1.0-4.8); LYMPHOCYTES % (AUTO) 14.1 % (22.0-44.0); MEAN CORPUSCULAR HGB CONC 34.9 G/dL (31.0-37.0); MEAN CORPUSCULAR VOLUME 80 fL (80-100); MONOCYTES # (AUTO) 0.8 K/uL (0.1-1.0); MONOCYTES % (AUTO) 9.8 % (2.0-9.0); NEUTROPHILS # (AUTO) 5.5 K/uL (1.8-7.7); NEUTROPHILS % (AUTO) 71.3 % (40.0-70.0); PLATELET COUNT (AUTO) 260 K/uL (150-450); RED BLOOD CELL COUNT(AUTO) 5.17 MIL/uL (4.50-5.90); RED CELL DISTRIBUTION WIDTH 14.5 % (11.5-14.5); WHITE BLOOD COUNT (AUTO) 7.7 K/uL (4.5-11.0)
[2024-09-03 07:05] LABS: GLUCOMETER DEV NAME(LOC) 6S.2; GLUCOSE,POINT OF CARE 194 MG/DL (70-110)
[2024-09-03 07:05] LABS: GLUCOMETER DEV NAME(LOC) 6S.2; GLUCOSE,POINT OF CARE 99 MG/DL (70-110)
[2024-09-03 07:16] LABS: ALANINE AMINOTRANSFERASE 60 U/L (12-78); ALBUMIN 2.9 g/dL (3.4-5.0); ALKALINE PHOSPHATASE 161 U/L (46-116); ANION GAP 10 mmol/L (8-16); ASPARTATE AMINOTRANSFERASE 33 U/L (15-37); BILIRUBIN,TOTAL 0.5 mg/dL (0.1-1.0); CALCIUM, TOTAL 9.3 mg/dL (8.8-10.5); CARBON DIOXIDE 28 mmol/L (22-29); CHLORIDE 98 mmol/L (98-107); CREATININE 0.91 mg/dL (0.60-1.30); GLOMERULAR FILTR. RATE CALC > 60 mL/min (>60); GLUCOSE,RANDOM 100 mg/dL (70-110); POTASSIUM 3.8 mmol/L (3.5-5.1); SODIUM SERUM 136 mmol/L (136-145); TOTAL PROTEIN, SERUM 7.9 g/dL (6.4-8.2); UREA NITROGEN, BLOOD 12 mg/dL (7-18)
[2024-09-03 08:59] VITALS: BP 111/79; PULSE 84; RESP 18
[2024-09-03 12:36] LABS: GLUCOMETER DEV NAME(LOC) 6N.1B; GLUCOSE,POINT OF CARE 125 MG/DL (70-110)
[2024-09-03 17:10] LABS: GLUCOMETER DEV NAME(LOC) 6N.2B; GLUCOSE,POINT OF CARE 143 MG/DL (70-110)
[2024-09-03 20:00] VITALS: BP 118/84; PULSE 92; RESP 19; TEMP 98.4; O2SAT 98
[2024-09-03] MEDS: ZOLPIDEM TARTRATE 5 MG TABLET PO PRN (23:30)
[2024-09-04 06:27] VITALS: BP 135/82; PULSE 80; RESP 18; TEMP 98.6; O2SAT 98
[2024-09-04 08:16] VITALS: BP 131/78; PULSE 83; RESP 20; TEMP 98.3; O2SAT 98
[2024-09-04 09:40] LABS: GLUCOMETER DEV NAME(LOC) 6N.2B; GLUCOSE,POINT OF CARE 135 MG/DL (70-110)
[2024-09-04 09:40] LABS: GLUCOMETER DEV NAME(LOC) 6N.2B; GLUCOSE,POINT OF CARE 108 MG/DL (70-110)
[2024-09-04 12:00] LABS: GLUCOMETER DEV NAME(LOC) 6N.2B; GLUCOSE,POINT OF CARE 169 MG/DL (70-110)
[2024-09-04 17:00] LABS: GLUCOMETER DEV NAME(LOC) 6N.2B; GLUCOSE,POINT OF CARE 104 MG/DL (70-110)
[2024-09-04 20:36] VITALS: BP 123/81; PULSE 82; RESP 18; TEMP 98.3; O2SAT 96
[2024-09-04 21:11] LABS: GLUCOMETER DEV NAME(LOC) 6N.1B; GLUCOSE,POINT OF CARE 139 MG/DL (70-110)
[2024-09-05 07:16] LABS: GLUCOMETER DEV NAME(LOC) 6N.1B; GLUCOSE,POINT OF CARE 135 MG/DL (70-110)
[2024-09-05 08:00] VITALS: BP 115/77; PULSE 79; RESP 19; TEMP 98.2; O2SAT 97
[2024-09-05 15:35] LABS: GLUCOMETER DEV NAME(LOC) 6N.1B; GLUCOSE,POINT OF CARE 140 MG/DL (70-110)
[2024-09-05 19:51] VITALS: BP 129/85; PULSE 87; RESP 20; TEMP 98.4; O2SAT 97
[2024-09-05 20:10] LABS: GLUCOMETER DEV NAME(LOC) 6S.2; GLUCOSE,POINT OF CARE 105 MG/DL (70-110)
[2024-09-06 05:13] VITALS: BP 139/90; PULSE 66; RESP 20; TEMP 97.7; O2SAT 98
[2024-09-06 05:41] LABS: GLUCOMETER DEV NAME(LOC) 6N.2B; GLUCOSE,POINT OF CARE 103 MG/DL (70-110)
[2024-09-06 05:41] LABS: GLUCOMETER DEV NAME(LOC) 6N.1B; GLUCOSE,POINT OF CARE 235 MG/DL (70-110)
[2024-09-06 07:31] VITALS: BP 149/88; PULSE 76; RESP 20; TEMP 97.9; O2SAT 98
[2024-09-06 11:25] LABS: GLUCOMETER DEV NAME(LOC) 6N.2B; GLUCOSE,POINT OF CARE 139 MG/DL (70-110)
[2024-09-06] MEDS: ONDANSETRON 4 MG TABLET PO PRN (11:37)
[2024-09-06 12:54] LABS: EOSINOPHILS % (AUTO) 4.5 % (1.0-6.0); HEMATOCRIT 40.6 % (41-53); HEMOGLOBIN 13.8 g/dL (13.5-17.5); LYMPHOCYTES # (AUTO) 1.1 K/uL (1.0-4.8); LYMPHOCYTES % (AUTO) 18.1 % (22.0-44.0); MEAN CORPUSCULAR HEMOGLOBIN 27.7 pg (26.0-34.0); MEAN CORPUSCULAR VOLUME 82 fL (80-100); MONOCYTES # (AUTO) 0.5 K/uL (0.1-1.0); MONOCYTES % (AUTO) 8.6 % (2.0-9.0); NEUTROPHILS # (AUTO) 4.2 K/uL (1.8-7.7); NEUTROPHILS % (AUTO) 67.8 % (40.0-70.0); PLATELET COUNT (AUTO) 250 K/uL (150-450); RED BLOOD CELL COUNT(AUTO) 4.98 MIL/uL (4.50-5.90); RED CELL DISTRIBUTION WIDTH 14.6 % (11.5-14.5); WHITE BLOOD COUNT (AUTO) 6.1 K/uL (4.5-11.0)
[2024-09-06 13:05] LABS: ANION GAP 9 mmol/L (8-16); CALCIUM, TOTAL 9.8 mg/dL (8.8-10.5); CARBON DIOXIDE 30 mmol/L (22-29); CHLORIDE 98 mmol/L (98-107); CREATININE 0.98 mg/dL (0.60-1.30); GLOMERULAR FILTR. RATE CALC > 60 mL/min (>60); GLUCOSE,RANDOM 141 mg/dL (70-110); POTASSIUM 4.3 mmol/L (3.5-5.1); SODIUM SERUM 137 mmol/L (136-145); UREA NITROGEN, BLOOD 14 mg/dL (7-18)
[2024-09-06 13:12] LABS: ALANINE AMINOTRANSFERASE 59 U/L (12-78); ALKALINE PHOSPHATASE 154 U/L (46-116); ASPARTATE AMINOTRANSFERASE 43 U/L (15-37); BILIRUBIN,TOTAL 0.7 mg/dL (0.1-1.0); TOTAL PROTEIN, SERUM 7.8 g/dL (6.4-8.2)
[2024-09-06 17:11] VITALS: BP 136/83; PULSE 77; RESP 18; TEMP 98.1; O2SAT 99
[2024-09-06 17:26] LABS: GLUCOMETER DEV NAME(LOC) 6N.1B; GLUCOSE,POINT OF CARE 130 MG/DL (70-110)
[2024-09-06 19:40] VITALS: BP 139/71; PULSE 79; RESP 20; TEMP 98.2; O2SAT 98
[2024-09-06 23:20] LABS: GLUCOMETER DEV NAME(LOC) 6N.1B; GLUCOSE,POINT OF CARE 184 MG/DL (70-110)
[2024-09-07] MEDS ORDERED: SODIUM CHLORIDE 3% 15 ML NEB SOLUTION NEB ONE (05:10)
[2024-09-07 07:15] LABS: GLUCOMETER DEV NAME(LOC) 6N.1B; GLUCOSE,POINT OF CARE 149 MG/DL (70-110)
[2024-09-07 07:54] VITALS: BP 119/79; PULSE 77; RESP 18; TEMP 98; O2SAT 96
[2024-09-07 12:23] LABS: BASOPHILS % (AUTO) 1.3 % (0.0-2.0); EOSINOPHILS % (AUTO) 4.6 % (1.0-6.0); HEMATOCRIT 42.9 % (41-53); HEMOGLOBIN 14.5 g/dL (13.5-17.5); LYMPHOCYTES # (AUTO) 1.2 K/uL (1.0-4.8); LYMPHOCYTES % (AUTO) 17.8 % (22.0-44.0); MEAN CORPUSCULAR HEMOGLOBIN 27.6 pg (26.0-34.0); MEAN CORPUSCULAR HGB CONC 33.9 G/dL (31.0-37.0); MEAN CORPUSCULAR VOLUME 81 fL (80-100); MONOCYTES # (AUTO) 0.5 K/uL (0.1-1.0); NEUTROPHILS # (AUTO) 4.5 K/uL (1.8-7.7); NEUTROPHILS % (AUTO) 69.3 % (40.0-70.0); PLATELET COUNT (AUTO) 259 K/uL (150-450); RED BLOOD CELL COUNT(AUTO) 5.28 MIL/uL (4.50-5.90); RED CELL DISTRIBUTION WIDTH 14.8 % (11.5-14.5); WHITE BLOOD COUNT (AUTO) 6.5 K/uL (4.5-11.0)
[2024-09-07 12:33] LABS: ANION GAP 6 mmol/L (8-16); CARBON DIOXIDE 33 mmol/L (22-29); CHLORIDE 98 mmol/L (98-107); CREATININE 0.92 mg/dL (0.60-1.30); GLOMERULAR FILTR. RATE CALC > 60 mL/min (>60); GLUCOSE,RANDOM 165 mg/dL (70-110); POTASSIUM 4.8 mmol/L (3.5-5.1); SODIUM SERUM 137 mmol/L (136-145); UREA NITROGEN, BLOOD 17 mg/dL (7-18)
[2024-09-07 14:21] LABS: GLUCOMETER DEV NAME(LOC) 6N.1B; GLUCOSE,POINT OF CARE 179 MG/DL (70-110)
[2024-09-07 21:00] VITALS: BP 131/83; PULSE 72; RESP 18; TEMP 98.1; O2SAT 96
[2024-09-07 21:01] LABS: GLUCOMETER DEV NAME(LOC) 6N.1B; GLUCOSE,POINT OF CARE 112 MG/DL (70-110)
[2024-09-07 23:01] LABS: GLUCOMETER DEV NAME(LOC) 6S.2; GLUCOSE,POINT OF CARE 173 MG/DL (70-110)
[2024-09-08 05:49] VITALS: BP 130/72; PULSE 72; RESP 18; O2SAT 98
[2024-09-08 08:27] VITALS: BP 110/77; PULSE 82; RESP 17; TEMP 98.2; O2SAT 98
[2024-09-08 11:16] LABS: GLUCOMETER DEV NAME(LOC) 6N.2B; GLUCOSE,POINT OF CARE 125 MG/DL (70-110)
[2024-09-08 17:10] LABS: GLUCOMETER DEV NAME(LOC) 6N.2B; GLUCOSE,POINT OF CARE 244 MG/DL (70-110)
[2024-09-08 19:40] VITALS: BP 111/72; PULSE 80; RESP 18; TEMP 97.7; O2SAT 98
[2024-09-08 20:11] LABS: GLUCOMETER DEV NAME(LOC) 6N.2B; GLUCOSE,POINT OF CARE 108 MG/DL (70-110)
[2024-09-09 01:36] LABS: GLUCOMETER DEV NAME(LOC) 6S.2; GLUCOSE,POINT OF CARE 170 MG/DL (70-110)
[2024-09-09 05:58] VITALS: BP 131/83; PULSE 73; RESP 18; TEMP 97.7; O2SAT 99
[2024-09-09 08:28] VITALS: BP 134/84; PULSE 74; RESP 18; TEMP 98; O2SAT 99
[2024-09-09 09:05] LABS: GLUCOMETER DEV NAME(LOC) 6N.2B; GLUCOSE,POINT OF CARE 132 MG/DL (70-110)
[2024-09-09 13:55] LABS: GLUCOMETER DEV NAME(LOC) 6N.2B; GLUCOSE,POINT OF CARE 176 MG/DL (70-110)
[2024-09-09 19:53] VITALS: BP 130/76; PULSE 76; RESP 18; TEMP 98; O2SAT 99
[2024-09-10 05:22] VITALS: BP 122/69; PULSE 75; RESP 18; TEMP 97.7; O2SAT 97
[2024-09-10 05:36] LABS: GLUCOMETER DEV NAME(LOC) 6S.1D; GLUCOSE,POINT OF CARE 131 MG/DL (70-110)
[2024-09-10 05:40] LABS: GLUCOMETER DEV NAME(LOC) 6S.2; GLUCOSE,POINT OF CARE 132 MG/DL (70-110)
[2024-09-10 05:55] LABS: GLUCOMETER DEV NAME(LOC) 6N.2B; GLUCOSE,POINT OF CARE 131 MG/DL (70-110)
[2024-09-10 06:31] LABS: EOSINOPHILS % (AUTO) 5.1 % (1.0-6.0); HEMATOCRIT 40.2 % (41-53); HEMOGLOBIN 13.9 g/dL (13.5-17.5); LYMPHOCYTES # (AUTO) 1.4 K/uL (1.0-4.8); LYMPHOCYTES % (AUTO) 21.4 % (22.0-44.0); MEAN CORPUSCULAR HGB CONC 34.6 G/dL (31.0-37.0); MEAN CORPUSCULAR VOLUME 81 fL (80-100); MONOCYTES # (AUTO) 0.6 K/uL (0.1-1.0); MONOCYTES % (AUTO) 8.3 % (2.0-9.0); NEUTROPHILS # (AUTO) 4.3 K/uL (1.8-7.7); NEUTROPHILS % (AUTO) 64.2 % (40.0-70.0); PLATELET COUNT (AUTO) 246 K/uL (150-450); RED BLOOD CELL COUNT(AUTO) 4.98 MIL/uL (4.50-5.90); RED CELL DISTRIBUTION WIDTH 15.1 % (11.5-14.5); WHITE BLOOD COUNT (AUTO) 6.7 K/uL (4.5-11.0)
[2024-09-10 06:44] LABS: ALANINE AMINOTRANSFERASE 50 U/L (12-78); ALBUMIN 3.1 g/dL (3.4-5.0); ALKALINE PHOSPHATASE 144 U/L (46-116); ANION GAP 7 mmol/L (8-16); ASPARTATE AMINOTRANSFERASE 27 U/L (15-37); BILIRUBIN,TOTAL 0.4 mg/dL (0.1-1.0); CALCIUM, TOTAL 9.4 mg/dL (8.8-10.5); CARBON DIOXIDE 31 mmol/L (22-29); CHLORIDE 101 mmol/L (98-107); CREATININE 0.82 mg/dL (0.60-1.30); GLOMERULAR FILTR. RATE CALC > 60 mL/min (>60); GLUCOSE,RANDOM 105 mg/dL (70-110); POTASSIUM 3.8 mmol/L (3.5-5.1); SODIUM SERUM 139 mmol/L (136-145); TOTAL PROTEIN, SERUM 7.8 g/dL (6.4-8.2); UREA NITROGEN, BLOOD 15 mg/dL (7-18)
[2024-09-10 08:04] VITALS: BP 135/83; PULSE 62; RESP 18; TEMP 97.7; O2SAT 99
[2024-09-10 14:16] LABS: GLUCOMETER DEV NAME(LOC) 6S.1D; GLUCOSE,POINT OF CARE 122 MG/DL (70-110)
[2024-09-10 19:46] LABS: GLUCOMETER DEV NAME(LOC) 6S.2; GLUCOSE,POINT OF CARE 112 MG/DL (70-110)
[2024-09-10 19:50] VITALS: BP 126/72; PULSE 69; RESP 18; TEMP 98.1; O2SAT 97
[2024-09-10] MEDS ORDERED: SODIUM CHLORIDE 3% 15 ML NEB SOLUTION NEB ONE (22:58)
[2024-09-10 23:05] VITALS: PULSE 65; RESP 18; O2SAT 94
[2024-09-11 04:35] VITALS: BP 135/81; PULSE 76; RESP 18; TEMP 97.7; O2SAT 100
[2024-09-11 05:51] LABS: GLUCOMETER DEV NAME(LOC) 6N.2B; GLUCOSE,POINT OF CARE 155 MG/DL (70-110)
[2024-09-11 06:46] LABS: GLUCOMETER DEV NAME(LOC) 6S.2; GLUCOSE,POINT OF CARE 106 MG/DL (70-110)
[2024-09-11 08:09] VITALS: BP 124/75; PULSE 64; RESP 19; O2SAT 100
[2024-09-11 09:47] VITALS: BP 128/84; PULSE 73; RESP 18; TEMP 97.8; O2SAT 98
[2024-09-11 16:10] VITALS: BP 124/78; PULSE 76; RESP 18; TEMP 97.7; O2SAT 97
[2024-09-11 19:55] VITALS: BP 115/73; PULSE 74; RESP 18; TEMP 97.9; O2SAT 96
[2024-09-12 06:26] LABS: GLUCOMETER DEV NAME(LOC) 6S.2; GLUCOSE,POINT OF CARE 106 MG/DL (70-110)
[2024-09-12 06:26] LABS: GLUCOMETER DEV NAME(LOC) 6S.2; GLUCOSE,POINT OF CARE 137 MG/DL (70-110)
[2024-09-12 06:26] LABS: GLUCOMETER DEV NAME(LOC) 6S.2; GLUCOSE,POINT OF CARE 111 MG/DL (70-110)
[2024-09-12 08:11] VITALS: BP 126/81; PULSE 76; RESP 18; TEMP 97.8; O2SAT 97
[2024-09-12 12:01] LABS: GLUCOMETER DEV NAME(LOC) 6S.2; GLUCOSE,POINT OF CARE 143 MG/DL (70-110)
[2024-09-12 15:58] VITALS: BP 136/86; PULSE 73; RESP 18; TEMP 98.3; O2SAT 98
[2024-09-12 20:06] LABS: GLUCOMETER DEV NAME(LOC) 6N.2B; GLUCOSE,POINT OF CARE 137 MG/DL (70-110)
[2024-09-12 20:06] LABS: GLUCOMETER DEV NAME(LOC) 6N.2B; GLUCOSE,POINT OF CARE 120 MG/DL (70-110)
[2024-09-12 21:34] VITALS: BP 141/92; PULSE 70; RESP 18; TEMP 98; O2SAT 99
[2024-09-13 05:01] LABS: GLUCOMETER DEV NAME(LOC) 6S.2; GLUCOSE,POINT OF CARE 102 MG/DL (70-110)
[2024-09-13 05:35] VITALS: BP 135/86; PULSE 77; RESP 18; TEMP 97.9; O2SAT 98
[2024-09-13 08:38] VITALS: BP 127/80; PULSE 89; RESP 18; TEMP 97.7; O2SAT 99
[2024-09-13] MEDS ORDERED: SODIUM PHOSPHATE,MONO-DIBASIC 133 ML ENEMA PR PRN (11:00)
[2024-09-13] MEDS: LACTULOSE 20 GM/30 ML SOLUTION UDCUP PO PRN (11:08)
[2024-09-13 16:46] LABS: GLUCOMETER DEV NAME(LOC) 6S.2; GLUCOSE,POINT OF CARE 106 MG/DL (70-110)
[2024-09-13 16:46] LABS: GLUCOMETER DEV NAME(LOC) 6N.2B; GLUCOSE,POINT OF CARE 190 MG/DL (70-110)
[2024-09-13 19:36] LABS: GLUCOMETER DEV NAME(LOC) 6N.2B; GLUCOSE,POINT OF CARE 110 MG/DL (70-110)
[2024-09-13 19:40] VITALS: BP 140/80; PULSE 74; RESP 18; TEMP 98.4; O2SAT 98
[2024-09-14 05:26] LABS: GLUCOMETER DEV NAME(LOC) 6N.2B; GLUCOSE,POINT OF CARE 154 MG/DL (70-110)
[2024-09-14 05:30] VITALS: BP 133/83; PULSE 74; RESP 18; TEMP 98; O2SAT 98
[2024-09-14] MEDS ORDERED: SODIUM CHLORIDE 3% 15 ML NEB SOLUTION NEB ONE ×2 (05:32→22:10)
[2024-09-14 05:35] VITALS: PULSE 71; RESP 18; O2SAT 94
[2024-09-14 08:05] VITALS: BP 139/88; PULSE 92; RESP 18; TEMP 97.9; O2SAT 99
[2024-09-14 10:16] LABS: GLUCOMETER DEV NAME(LOC) 6N.2B; GLUCOSE,POINT OF CARE 91 MG/DL (70-110)
[2024-09-14 12:16] LABS: GLUCOMETER DEV NAME(LOC) 6N.2B; GLUCOSE,POINT OF CARE 116 MG/DL (70-110)
[2024-09-14 19:56] LABS: GLUCOMETER DEV NAME(LOC) 6S.2; GLUCOSE,POINT OF CARE 108 MG/DL (70-110)
[2024-09-14 20:09] VITALS: BP 124/69; PULSE 73; RESP 18; TEMP 98.3; O2SAT 98
[2024-09-15 04:37] VITALS: BP 125/75; PULSE 65; RESP 16; TEMP 98; O2SAT 99
[2024-09-15 05:45] LABS: GLUCOMETER DEV NAME(LOC) 6N.2B; GLUCOSE,POINT OF CARE 166 MG/DL (70-110)
[2024-09-15 07:41] LABS: GLUCOMETER DEV NAME(LOC) 6S.2; GLUCOSE,POINT OF CARE 102 MG/DL (70-110)
[2024-09-15 08:38] VITALS: BP 137/92; PULSE 87; RESP 20; TEMP 97.8; O2SAT 98
[2024-09-15 18:30] LABS: GLUCOMETER DEV NAME(LOC) 6N.2B; GLUCOSE,POINT OF CARE 113 MG/DL (70-110)
[2024-09-15 18:31] LABS: GLUCOMETER DEV NAME(LOC) 6N.2B; GLUCOSE,POINT OF CARE 123 MG/DL (70-110)
[2024-09-15 20:12] VITALS: BP 137/78; PULSE 71; RESP 18; TEMP 98.3; O2SAT 96
[2024-09-15] MEDS ORDERED: SODIUM CHLORIDE 3% 15 ML NEB SOLUTION NEB ONE (23:29)
[2024-09-16 05:00] VITALS: BP 122/90; PULSE 90; RESP 18; TEMP 97.9; O2SAT 97
[2024-09-16 06:26] LABS: GLUCOMETER DEV NAME(LOC) 6S.2; GLUCOSE,POINT OF CARE 151 MG/DL (70-110)
[2024-09-16 06:26] LABS: GLUCOMETER DEV NAME(LOC) 6N.2B; GLUCOSE,POINT OF CARE 107 MG/DL (70-110)
[2024-09-16 09:15] VITALS: BP 125/74; PULSE 70; RESP 18; TEMP 97.9; O2SAT 96
[2024-09-16 12:05] LABS: GLUCOMETER DEV NAME(LOC) 6N.2B; GLUCOSE,POINT OF CARE 116 MG/DL (70-110)
[2024-09-16 17:56] LABS: GLUCOMETER DEV NAME(LOC) 6N.2B; GLUCOSE,POINT OF CARE 118 MG/DL (70-110)
[2024-09-16 19:34] VITALS: BP 141/90; PULSE 80; RESP 20; TEMP 98.1; O2SAT 99
[2024-09-16 22:26] LABS: GLUCOMETER DEV NAME(LOC) 6S.2; GLUCOSE,POINT OF CARE 148 MG/DL (70-110)
[2024-09-17 04:38] VITALS: BP 139/94; PULSE 80; RESP 18; TEMP 97.5; O2SAT 99
[2024-09-17] MEDS ORDERED: INSULIN LISPRO 100 UNITS/ML SQ PRN (06:00)
[2024-09-17] MEDS ORDERED: DEXTROSE 50%-WATER 25 GM/50 ML SYRINGE IVP PRN (06:00)
[2024-09-17 07:41] LABS: GLUCOMETER DEV NAME(LOC) 6S.2; GLUCOSE,POINT OF CARE 111 MG/DL (70-110)
[2024-09-17 08:41] VITALS: BP 150/85; PULSE 85; RESP 20; TEMP 98.3; O2SAT 100
[2024-09-17 12:45] LABS: GLUCOMETER DEV NAME(LOC) 6N.2B; GLUCOSE,POINT OF CARE 121 MG/DL (70-110)
[2024-09-17] MEDS ORDERED: ETHA400T25 PO (17:33)
[2024-09-17] MEDS ORDERED: ISON300T18 PO (17:35)
[2024-09-17] MEDS ORDERED: METF-1211 PO (17:35)
[2024-09-17] MEDS ORDERED: PYRA500T33 PO (17:37)
[2024-09-17] MEDS ORDERED: PYRI-9 PO (17:38)
[2024-09-17] MEDS ORDERED: RIFA300C63 PO (17:38)
[2024-09-17 22:01] LABS: GLUCOMETER DEV NAME(LOC) 6N.2B; GLUCOSE,POINT OF CARE 109 MG/DL (70-110)
[2024-09-18] MEDS ORDERED: ETHAMBUTOL HCL 400 MG TABLET PO SCH (09:00)
[2024-09-18] MEDS ORDERED: ISONIAZID 300 MG TABLET PO SCH (09:00)
[2024-09-18] MEDS ORDERED: RIFAMPIN 300 MG CAPSULE PO SCH (09:00)
[2024-09-18] MEDS ORDERED: PYRAZINAMIDE 500 MG TABLET PO SCH (09:00)
== END 2024-09-17 20:08 | DRG 178 ==
LOC: EDBD 11:09 → EMS 11:09 → EDH 12:15 → 6S 16:20
PROVIDERS: ADMIT Internal Medicine; ATTEND Internal Medicine
DX: A15.0 Tuberculosis of lung (principal); E22.2 Syndrome of inappropriate secretion of antidiuretic hormone; E44.0 Moderate protein-calorie malnutrition; I10 Essential (primary) hypertension; R74.01 Elevation of levels of liver transaminase levels; E11.65 Type 2 diabetes mellitus with hyperglycemia; K59.00 Constipation, unspecified; E78.5 Hyperlipidemia, unspecified; R91.8 Other nonspecific abnormal finding of lung field; R74.8 Abnormal levels of other serum enzymes; Z68.30 Body mass index [BMI] 30.0-30.9, adult
CPT/HCPCS: 71046; 71250; 80048; 80053; 82962; 85025; 86480; 87015; 87081; 87150; 87188; 87206; 87389; 87556; 94640; 99285; J1644; J1815; J7030; Q0162; 36415-L1; 36415-TC